=== PATIENT | female | born 1990 ===

== ENCOUNTER 2018-01-09 15:00 | Inpatient (IN) | payer OTHER ==
[~2018-01-09] VITALS: Ht 154.9 cm; Wt 81.6 kg
[~2018-01-09 15:00] MED LIST: ESTROGEN-METHY1 EACH; FISH OIL 1,0001 CA2; VENALIV CAPLET1 EACH
[2018-01-13] MEDS ORDERED: PRENATAL TABLE1 EAC2 PO (13:08)
[2018-01-13] MEDS ORDERED: IRON325 MG PO (13:08)
== END 2018-01-16 19:32 | DRG 788 ==
LOC: SURG-SUITE 01-13 12:35 → LDR 01-13 12:35 → SURG-SUITE 01-14 00:30 → OB/GYN 01-16 15:00 → SURG-SUITE 01-16 19:32
PROVIDERS: Obstetrics & Gynecology
PROC: 4A1HXCZ Monitoring of Products of Conception, Cardiac Rate, External Approach (ICD-10-PCS; 2018-01-13)
PROC: 10D00Z1 Extraction of Products of Conception, Low, Open Approach (ICD-10-PCS; principal; 2018-01-13 22:00)
PROC: 4A033R1 Measurement of Arterial Saturation, Peripheral, Percutaneous Approach (ICD-10-PCS; 2018-01-14)
DX: O62.1 Secondary uterine inertia (principal); Z3A.39 39 weeks gestation of pregnancy; Z37.0 Single live birth